=== PATIENT | male | born 1995 | race Caucasian/White ===

== ENCOUNTER 2018-12-12 11:49 | Emergency (ER) | payer OTHER ==
[2018-12-12] MEDS: ONDANSETRON (ODT) 4 MG TAB ODT (13:50)
[2018-12-12] MEDS: LORAZEPAM 1 MG TAB PO (15:03)
== END 2018-12-12 15:37 | disposition home or self-care (01) ==
LOC: E/R 11:49
DX: F10.230 Alcohol dependence with withdrawal, uncomplicated (principal)
CPT/HCPCS: 93005; 99283; Z7502